=== PATIENT | female | born 1965 | race Caucasian/White ===

== ENCOUNTER → 2017-08-10 | Day surgery (SDC) | payer OTHER ==
[~2017-08-10] MED LIST: ASPI-630 PO; CHLO25TA PO; IV RINGERS,LACTATED 1000ML 1,000 ML IV SCH; LEVO88TA2 PO; LIDOCAINE 1% PF 2 ML VIAL. ID PRN; LIDOCAINE 2% PF Vial for OR 5 ML VIAL. ONE; MIDAZOLAM HCL/PF 2 MG/2 ML VIAL. IV PRN; PANT40TA5 PO; PROPOFOL 20 ML IV ONE; PROPOFOL 60 ML IV ONE; fentaNYL PF VIAL 100 MCG/2 ML VIAL IV PRN
[2017-08-10 11:05] VITALS: BP 131/89
--- NOTE | 2017-08-11 16:50 | PATHOLOGY ---
PATHOLOGY REPORT * * * * * * * * FINAL DIAGNOSIS: A. Small bowel biopsy: - No significant pathologic abnormalities. B. Duodenal bulb biopsy: - Segments of gastric body mucosa showing congestion and mild chronic inflammation. C. Gastric antral biopsy: - Chronic gastritis, mild. D. Distal esophageal biopsy: - Segments of gastric mucosa showing congestion and mild superficial chronic inflammation. E. Terminal ileum biopsy: - No significant pathologic abnormalities, with several hyperplastic mucosal-associated lymphoid aggregates. F. Right colon biopsy: - No significant pathologic abnormalities. G. Left colon biopsy: - No significant pathologic abnormalities. COMMENT: Sections of the small bowel biopsy reveal duodenal and small intestine mucosa. The mucosal villi appear normal. There are no sprue-like changes or significant inflammatory changes. Sections of the duodenal bulb biopsy reveal segments of gastric body mucosa showing congestion, mild chronic inflammation, and focal cystic dilatation of gastric glands. 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 Sections of the gastric antral biopsy show congestion and mild chronic inflammation. An immunoperoxidase stain for Helicobacter is obtained. No Helicobacter organisms are identified. Sections of the distal esophageal biopsy reveal segments of gastric body mucosa showing congestion and mild superficial chronic inflammation. There is no squamous esophageal mucosa. There is no evidence of Rosario's change, dysplasia, or malignancy. Sections of the terminal ileum biopsy reveal segments of small intestine mucosa containing several hyperplastic mucosal- associated lymphoid aggregates and showing no significant pathologic abnormalities. Sections of the right colon and left colon biopsies appear similar and reveal segments of colonic mucosa. There is no evidence of a chronic destructive colitis, lymphocytic colitis, or collagenous colitis. (JPM:mgr; 08/11/2017) Special Stain: Helicobacter pylori (C1) REPORT ELECTRONICALLY SIGNED BY: Kalin Alcazar M.D. DATE/TIME: 08/11/2017 16:49 * * * * * * * * GROSS PATHOLOGY: A. Received in formalin labeled "Anu Mistry, small bowel BX," are 2 segments of albarran soft tissue measuring 0.8 x 0.4 x 0.3 cm in aggregate dimensions and ranging from 0.3 to 0.5 cm in maximum dimension. The specimen is submitted entirely in cassette A1. B. Received in formalin labeled "Anu Mistry, duodenal bulb BX," are 2 segments of albarran soft tissue measuring 1.0 x 0.3 x 0.3 cm in aggregate dimensions and ranging from 0.4 to 0.6 cm in maximum dimension. The specimen is submitted entirely in cassette B1. C. Received in formalin labeled "Anu Mistry, gastric antrum," are 2 segments of albarran soft tissue measuring 0.8 x 0.4 x 0.3 cm in aggregate dimensions and ranging from 0.3 to 0.5 cm in maximum dimension. The specimen is submitted entirely in cassette C1. D. Received in formalin labeled "Anu Mistry, distal esophagus BX," are 2 segments of albarran soft tissue measuring 0.6 x 0.3 x 0.3 cm in aggregate dimensions and ranging from 0.3 to 0.3 cm in maximum dimension. The specimen is submitted entirely in cassette D1. E. Received in formalin labeled "Anu Mistry, terminal ileum BX," is a segment of albarran soft tissue measuring 0.6 cm in maximum dimension. The specimen is submitted entirely in cassette E1. F. Received in formalin labeled "Anu Mistry, right colon BX," are 4 segments of albarran soft tissue measuring 1.5 x 0.3 x 0.2 cm in aggregate dimensions and ranging from 0.3 to 0.6 cm in maximum dimension. The specimen is submitted entirely in cassette E1. G. Received in formalin labeled "Anu Mistry, left colon BX," are 4 segments of albarran soft tissue measuring 1.2 x 0.5 x 0.3 cm in aggregate dimensions and ranging from 0.3 to 0.3 cm in maximum dimension. The specimen is submitted entirely in cassette G1. (TSD; 08/10/2017) INITIAL CPT CODE(S): A; 34933 B; 68233 C; 81651, 46586 D; 09716 E; 48768 F; 31600 G; 98578 Professional services performed by [facility] at [address] [address] Technical services performed by [facility] at [address] [place] [address], [address], [place] [address]. SPECIMEN(S) RECEIVED: A.Small bowel biopsy B.Duodenal bulb biopsy C.Gastric antral biopsy D.Distal esophagus biopsy E.Terminal ileum biopsy F.Right colon biopsy G.Left colon biopsy CLINICAL HISTORY: GERD PATIENT: ANU MISTRY /AGE: 906/30/1965 (Age: 52) PATIENT #: [id number] [facility] CASE #: SPECIMEN COLLECTION DATE: 08/10/2017 SPECIMEN RECEIVED DATE: 08/10/2017 [facility] - [address] [place] [address] - PHONE: [phone] * * * END OF REPORT * * *
== END | disposition home or self-care (01) ==
LOC: SURG 08:53
PROVIDERS: ATTEND Internal Medicine Gastroenterology
DX: K64.0 First degree hemorrhoids (principal); K31.89 Other diseases of stomach and duodenum; K22.70 Barrett's esophagus without dysplasia; K21.0 Gastro-esophageal reflux disease with esophagitis; Z98.84 Bariatric surgery status; E78.00 Pure hypercholesterolemia, unspecified; I10 Essential (primary) hypertension; E03.9 Hypothyroidism, unspecified; Z86.39 Personal history of other endocrine, nutritional and metabolic disease; Z90.49 Acquired absence of other specified parts of digestive tract; Z88.0 Allergy status to penicillin; Z88.8 Allergy status to other drugs, medicaments and biological substances; Z91.040 Latex allergy status
CPT/HCPCS: 43239; 45380; J2704; 88305; 88342; J2001